=== PATIENT | male | born 1945 | race Caucasian/White ===

== ENCOUNTER 2019-10-04 14:22 | Emergency (ER) | payer MEDICARE ==
[~2019-10-04] VITALS: Ht 180.3 cm; Wt 100.0 kg
[2019-10-04] MEDS ORDERED: morphine 4 MG/ML inj SYRINge IM ONE (15:15)
[2019-10-04] MEDS ORDERED: ceFAZolin 1GM/D5W- ADD-VANTAGE 50 ML IV ONE (15:35)
[2019-10-04] MEDS ORDERED: LIDOcaine 1% 30ml preserv. free vial IJ ONE (15:50)
--- NOTE | 2019-10-04 16:31 | NUR ---
set up for procedure, pt still at bedside, no pain at this time
--- NOTE | 2019-10-04 16:46 | NUR ---
provider at bedside, suturing right palm wound
[2019-10-04] MEDS ORDERED: CEPH-572 PO (17:02)
[2019-10-04 17:32] VITALS: BP 134/84
[2019-10-08] MEDS ORDERED: PRAV40TA3 PO (10:15)
[2019-10-08] MEDS ORDERED: LISI10TA4 PO (10:15)
[2019-10-08] MEDS ORDERED: MAGNESIUM (10:15)
[2019-10-08] MEDS ORDERED: CALCIUM (10:15)
[2019-10-08] MEDS ORDERED: WARF-55 PO (10:15)
[2019-10-08] MEDS ORDERED: OCUVITE (10:15)
[2019-10-08] MEDS ORDERED: MULT-933 PO (10:15)
[2019-10-08] MEDS ORDERED: METO100T14 PO (10:15)
[2019-10-08] MEDS ORDERED: COQ10 (10:15)
[2019-10-08] MEDS ORDERED: FENO145T25 PO (10:15)
[2019-10-08] MEDS ORDERED: DILT120C51 PO (10:15)
== END 2019-10-04 17:34 | disposition home or self-care (01) ==
LOC: ER 14:23
DX: S61.411A Laceration without foreign body of right hand, initial encounter (principal); I48.91 Unspecified atrial fibrillation; I10 Essential (primary) hypertension; F10.99 Alcohol use, unspecified with unspecified alcohol-induced disorder; Z79.899 Other long term (current) drug therapy; W27.8XXA Contact with other nonpowered hand tool, initial encounter; Y93.89 Activity, other specified; Y92.89 Other specified places as the place of occurrence of the external cause; Y99.8 Other external cause status; Y90.9 Presence of alcohol in blood, level not specified
CPT/HCPCS: 12002; 36415; 73130; 85610; 96365; 96372; 99285; J0690; J2001; J2270

== ENCOUNTER 2019-10-11 10:18 | Day surgery (SDC) | payer MEDICARE ==
[2019-10-08 10:16] LABS: BASOPHILS # (AUTO) 0.1 X10'3 (0-0.2); BASOPHILS % (AUTO) 1.6 % (0-1); EOSINOPHILS # (AUTO) 0.6 X10'3 (0-0.9); EOSINOPHILS % (AUTO) 6.7 % (0-6); LYMPHOCYTES # (AUTO) 1.6 X10'3 (1.1-4.8); LYMPHOCYTES % (AUTO) 19.1 % (21-51); MEAN CORPUSCULAR HEMOGLOBIN 33.3 PG (27.0-31.0); MEAN CORPUSCULAR HGB CONC 34.2 g/dL (33.0-36.5); MEAN CORPUSCULAR VOLUME 97.3 FL (78-98); MEAN PLATELET VOLUME 8.7 FL (7.4-10.4); MONOCYTES # (AUTO) 0.8 X10'3 (0-0.9); MONOCYTES % (AUTO) 9.5 % (2-12); NEUTROPHILS # (AUTO) 5.3 X10'3 (1.8-7.7); NEUTROPHILS % (AUTO) 63.1 % (42-75); PRE OP HEMATOCRIT 44.5 % (42.0-52.0); PRE OP HEMOGLOBIN 15.2 g/dL (14.0-17.9); PRE OP PLATELET COUNT 244 X10'3 (140-440); RED BLOOD COUNT 4.58 X10'6 (4.70-6.10)
[2019-10-08 10:29] LABS: ALBUMIN 3.6 G/DL (3.4-5.0); ALBUMIN/GLOBULIN RATIO 0.9 (1.1-1.5); ALKALINE PHOSPHATASE 46 IU/L (46-116); BLOOD UREA NITROGEN 26 MG/DL (7-18); BUN/CREATININE RATIO 16.6 (5.4-32.0); CHLORIDE 104 MMOL/L (99-107); CREATININE 1.57 MG/DL (0.60-1.10); PRE OP ALT 23 U/L (30-65); PRE OP ANION GAP 11 (8-16); PRE OP AST 20 U/L (10-37); PRE OP BILIRUB, TOTAL 0.4 MG/DL (0.0-1.0); PRE OP GLUCOSE 108 MG/DL (70-104); PRE OP POTASSIUM 4.1 MMOL/L (3.4-5.1); PRE OP SODIUM 139 MMOL/L (135-145); TOTAL CARBON DIOXIDE 24.5 MMOL/L (24-32); TOTAL PROTEIN 7.6 G/DL (6.4-8.2); eGFR 44 ML/MIN
[~2019-10-11] VITALS: Ht 154.9 cm; Wt 97.2 kg
[~2019-10-11 10:18] MED LIST: BUPIVAcaine/PF 2.5mg/ml (0.25%) 10ml vial ONE; CALCIUM; COQ10; DILT120C51 PO; FENO145T25 PO; LISI10TA4 PO; MAGNESIUM; METO100T14 PO; MULT-933 PO; OCUVITE; PRAV40TA3 PO; WARF-55 PO
[2019-10-11] MEDS ORDERED: LIDOcaine 0.5% (5mg/ml) 50ml vial ONE (11:03)
[2019-10-11 11:42] VITALS: BP 132/87
[2019-10-11 11:50] VITALS: BP 132/87
[2019-10-11] MEDS ORDERED: ringers solution, lacted 1,000 ML IV SCH ×2 (11:51→12:00)
--- NOTE | 2019-10-11 11:53 | NUR ---
DR HUERTA AND DR MELO SAID NO NEED TO DO PT/INR TODAY
[2019-10-11] MEDS ORDERED: meperidine/PF 25mg/ml syringe IV PRN ×3 (11:55)
[2019-10-11] MEDS ORDERED: ondansetron/PF 4mg/2ml inj IV PRN (11:55)
[2019-10-11] MEDS ORDERED: proCHLORperazine 10 MG/2 ml inj IV PRN (11:55)
[2019-10-11] MEDS ORDERED: morphine 4 MG/ML inj SYRINge IV PRN ×2 (11:55)
[2019-10-11] MEDS ORDERED: DOCUMENT DATE & TIME OF BETA-BLOCKER PO ONE (12:00)
[2019-10-11] MEDS ORDERED: famotidine 20mg tablet PO ONE (12:00)
[2019-10-11] MEDS ORDERED: cefazolin/dext.iso 2gm/50ml 50 ML IV ONE (12:00)
[2019-10-11] MEDS ORDERED: MIDAZolam 5mg/5ml vial ONE (12:56)
[2019-10-11] MEDS ORDERED: fentaNYL/PF 50MCG/1 ML 2ML syringe ONE (12:56)
[2019-10-11] MEDS ORDERED: propofol inj 20 ML IV ONE (13:35)
[2019-10-11 13:54] VITALS: BP 103/62
--- NOTE | 2019-10-11 13:54 | NUR ---
Received from OR via , accompanied by Anesthesiologist DR CASE and report given by Anesthesiolgist. AWAKE AND DENIES PAIN. VITALS STABLE. DRESSING DI. FINGERS WARM AND PINK.
[2019-10-11 14:04] VITALS: BP 118/83
[2019-10-11 14:14] VITALS: BP 128/86
[2019-10-11 14:24] VITALS: BP 123/76
--- NOTE | 2019-10-11 14:34 | NUR ---
AWAKE AND ORIENTED. VITALS STABLE. DRESSING DI. MANDY PAIN. HOME WITH HIS SPOUSE AT THIS TIME.
== END 2019-10-11 14:34 | disposition home or self-care (01) ==
LOC: PAS 10:18
PROVIDERS: ATTEND Orthopaedic Surgery Hand Surgery
DX: S66.126A Laceration of flexor muscle, fascia and tendon of right little finger at wrist and hand level, initial encounter (principal); S62.396A Other fracture of fifth metacarpal bone, right hand, initial encounter for closed fracture; S64.01XA Injury of ulnar nerve at wrist and hand level of right arm, initial encounter; I10 Essential (primary) hypertension; I48.91 Unspecified atrial fibrillation; K21.9 Gastro-esophageal reflux disease without esophagitis; Z72.89 Other problems related to lifestyle; Z98.890 Other specified postprocedural states; Z79.01 Long term (current) use of anticoagulants; Z96.643 Presence of artificial hip joint, bilateral; Z79.899 Other long term (current) drug therapy; Z88.8 Allergy status to other drugs, medicaments and biological substances; W31.2XXA Contact with powered woodworking and forming machines, initial encounter; Y93.89 Activity, other specified; Y92.89 Other specified places as the place of occurrence of the external cause; Y99.8 Other external cause status
CPT/HCPCS: 26350; 26615; 36415; 64836; 80053; 82948; 85025; C1713; J2001; J2250; J2704; J3010; J3490; J7120; A4215; A4618; A7000

== ENCOUNTER 2020-09-15 07:29 | Day surgery (SDC) | payer MEDICARE ==
[2020-09-07 15:09] LABS: BASOPHILS # (AUTO) 0.1 X10'3 (0-0.2); BASOPHILS % (AUTO) 1.3 % (0-1); EOSINOPHILS # (AUTO) 0.3 X10'3 (0-0.9); EOSINOPHILS % (AUTO) 3.7 % (0-6); LYMPHOCYTES # (AUTO) 1.4 X10'3 (1.1-4.8); LYMPHOCYTES % (AUTO) 14.9 % (21-51); MEAN CORPUSCULAR HEMOGLOBIN 32.6 PG (27.0-31.0); MEAN CORPUSCULAR HGB CONC 33.2 g/dL (33.0-36.5); MEAN CORPUSCULAR VOLUME 98.1 FL (78-98); MEAN PLATELET VOLUME 9.1 FL (7.4-10.4); MONOCYTES # (AUTO) 1.1 X10'3 (0-0.9); MONOCYTES % (AUTO) 11.9 % (2-12); NEUTROPHILS # (AUTO) 6.4 X10'3 (1.8-7.7); NEUTROPHILS % (AUTO) 68.2 % (42-75); PRE OP HEMOGLOBIN 14.9 g/dL (14.0-17.9); PRE OP PLATELET COUNT 245 X10'3 (140-440); RED BLOOD COUNT 4.59 X10'6 (4.70-6.10); RED CELL DISTRIBUTION WIDTH 13.8 % (11.5-14.5)
[2020-09-07 15:28] LABS: PRE OP PROTIME 31.7 SECONDS (9.0-12.0)
[2020-09-07 15:30] LABS: ALBUMIN 3.6 G/DL (3.4-5.0); ALKALINE PHOSPHATASE 43 IU/L (46-116); BLOOD UREA NITROGEN 37 MG/DL (7-18); BUN/CREATININE RATIO 20.6 (5.4-32.0); CHLORIDE 105 MMOL/L (99-107); PRE OP ALT 33 U/L (30-65); PRE OP ANION GAP 8 (8-16); PRE OP AST 23 U/L (10-37); PRE OP BILIRUB, TOTAL 0.3 MG/DL (0.0-1.0); PRE OP GLUCOSE 111 MG/DL (70-104); PRE OP POTASSIUM 4.5 MMOL/L (3.4-5.1); PRE OP SODIUM 142 MMOL/L (135-145); TOTAL CARBON DIOXIDE 29.3 MMOL/L (24-32); TOTAL PROTEIN 7.3 G/DL (6.4-8.2); eGFR 37 ML/MIN
[2020-09-07 15:34] LABS: PRE OP INR 3.3 INR
[~2020-09-15] VITALS: Ht 180.3 cm; Wt 100.2 kg
[~2020-09-15 07:29] MED LIST changes: +DOCUMENT DATE & TIME OF BETA-BLOCKER PO ONE; +ceFAZolin 2gm in dextrose, iso 50 ML IV ONE; +famotidine 10mg tablet PO ONE; +ringers solution, lacted 1,000 ML IV SCH
[2020-09-15] MEDS ORDERED: meperidine/PF 25mg/ml syringe IV PRN ×3 (07:30)
[2020-09-15] MEDS ORDERED: proCHLORperazine 10 MG/2 ml inj IV PRN (07:30)
[2020-09-15] MEDS ORDERED: morphine 2 MG/ML inj. syringe IV PRN (07:30)
[2020-09-15] MEDS ORDERED: morphine 4 MG/ML inj SYRINge IV PRN (07:30)
[2020-09-15] MEDS ORDERED: ondansetron/PF 4mg/2ml inj IV PRN (07:30)
[2020-09-15] MEDS ORDERED: ringers solution, lacted 1,000 ML IV SCH (07:30)
[2020-09-15] MEDS ORDERED: LIDOcaine 1% 30ml preserv. free vial ONE (07:35)
[2020-09-15 07:40] VITALS: BP 132/75
[2020-09-15] MEDS ORDERED: BUPIVAcaine/PF 2.5mg/ml (0.25%) 10ml vial ONE (10:25)
[2020-09-15] MEDS ORDERED: fentaNYL/PF 50MCG/1 ML 2ML syringe ONE (10:35)
[2020-09-15] MEDS ORDERED: midazolam 2 mg/2 ml injection ONE ×2 (10:35→10:46)
[2020-09-15 11:15] VITALS: BP 115/79
--- NOTE | 2020-09-15 11:15 | NUR ---
Received from OR via BED, accompanied by Anesthesiologist DR ZAMORA and report given by Anesthesiolgist. PATIENT A&OX4, DENIES PAIN, V/S WNL, NEUROVASCULAR CHECKS INTACT, 20G PIV LUE, SCD ON, DRESSING TO RIGHT WRIST PINKY CDI ELEVATED WITH ICEBAG APPLIED.
[2020-09-15 11:25] VITALS: BP 118/71
[2020-09-15 11:35] VITALS: BP 111/78
[2020-09-15 11:45] VITALS: BP 115/77
--- NOTE | 2020-09-15 11:45 | NUR ---
PATIENT A&OX4, DENIES PAIN, V/S WNL, NEUROVASCULAR CHECKS INTACT, 20G PIV LUE D/C, SCD OFF, DRESSING TO RIGHT WRIST CDI ELEVATED WITH ICEBAG APPLIED. I HAVE REVIEWED D/C INSTRUCTIONS WITH PATIENT AND FAMILY AND THEY HAVE VERBALIZED UNDERSTANDING. PATIENT D/C HOME WITH ALL BELONGINGS AND FAMILY GAVE TRANSPORT HOME.
[2020-09-15] MEDS ORDERED: LIDOcaine 0.5% (5mg/ml) 50ml vial ONE (12:08)
== END 2020-09-15 11:45 | disposition home or self-care (01) ==
LOC: PAS 07:29
PROVIDERS: ATTEND Orthopaedic Surgery Hand Surgery
DX: M24.541 Contracture, right hand (principal); M19.072 Primary osteoarthritis, left ankle and foot; I48.91 Unspecified atrial fibrillation; E78.5 Hyperlipidemia, unspecified; Z72.89 Other problems related to lifestyle; Z98.890 Other specified postprocedural states; Z79.899 Other long term (current) drug therapy; Z79.01 Long term (current) use of anticoagulants; Z20.828 Contact with and (suspected) exposure to other viral communicable diseases
CPT/HCPCS: 26525; 36415; 80053; 82948; 85025; 85610; 85730; 87635; 93005; J2001; J2250; J3010; J3490; J7120; A4215; A6449

== ENCOUNTER 2023-01-28 01:59 | Emergency (ER) | payer MEDICARE ==
[~2023-01-28] VITALS: Ht 180.3 cm; Wt 100.0 kg
[~2023-01-28 01:59] MED LIST changes: -BUPIVAcaine/PF 2.5mg/ml (0.25%) 10ml vial ONE; -DOCUMENT DATE & TIME OF BETA-BLOCKER PO ONE; +LISI10TA27 PO; -LISI10TA4 PO; -ceFAZolin 2gm in dextrose, iso 50 ML IV ONE; -famotidine 10mg tablet PO ONE; -ringers solution, lacted 1,000 ML IV SCH
[2023-01-28 02:03] VITALS: BP 171/91
[2023-01-28 02:26] LABS: BASOPHILS # (AUTO) 0.1 X10'3 (0-0.2); BASOPHILS % (AUTO) 1.1 % (0-1); EOSINOPHILS # (AUTO) 0.5 X10'3 (0-0.9); EOSINOPHILS % (AUTO) 4.5 % (0-6); HEMATOCRIT 40.5 % (42.0-52.0); LYMPHOCYTES # (AUTO) 1.3 X10'3 (1.1-4.8); MEAN CORPUSCULAR HEMOGLOBIN 33.4 PG (27.0-31.0); MEAN CORPUSCULAR HGB CONC 34.6 g/dL (33.0-36.5); MEAN CORPUSCULAR VOLUME 96.5 FL (78-98); MEAN PLATELET VOLUME 8.5 FL (7.4-10.4); MONOCYTES # (AUTO) 0.9 X10'3 (0-0.9); MONOCYTES % (AUTO) 9.1 % (2-12); NEUTROPHILS # (AUTO) 7.6 X10'3 (1.8-7.7); NEUTROPHILS % (AUTO) 73.3 % (42-75); PLATELET COUNT 211 X10'3 (140-440); RED BLOOD COUNT 4.19 X10'6 (4.70-6.10); WHITE BLOOD COUNT 10.4 X10'3 (4.5-11.0)
[2023-01-28 02:37] LABS: ALANINE AMINOTRANSFERASE 29 U/L (12-78); ALBUMIN 3.7 G/DL (3.4-5.0); ALBUMIN/GLOBULIN RATIO 1.1 (1.1-1.5); ALKALINE PHOSPHATASE 40 IU/L (46-116); ANION GAP 10 (8-16); ASPARTATE AMINO TRANSFERASE 25 U/L (10-37); BILIRUBIN,TOTAL 0.6 MG/DL (0.1-1.0); BLOOD UREA NITROGEN 39 MG/DL (7-18); CALCIUM 9.4 MG/DL (8.5-10.1); CHLORIDE 106 MMOL/L (99-107); CREATININE 2.29 MG/DL (0.60-1.10); GLUCOSE 130 MG/DL (70-104); LIPASE 190 U/L (73-393); POTASSIUM 4.1 MMOL/L (3.5-5.1); SODIUM 139 MMOL/L (135-145); TOTAL CARBON DIOXIDE 22.6 MMOL/L (24-32); TOTAL PROTEIN 7.2 G/DL (6.4-8.2); eGFR 28 ML/MIN
[2023-01-28] MEDS ORDERED: ONDA4TAB12 PO (13:29)
[2023-01-28] MEDS ORDERED: FLO0.4C PO (13:29)
[2023-01-28] MEDS ORDERED: DOCU-151 PO (13:29)
[2023-01-28] MEDS ORDERED: HYDR-3965 PO (13:29)
== END 2023-01-28 03:58 | disposition left against medical advice (07) ==
LOC: ER 02:00
DX: R10.9 Unspecified abdominal pain (principal); Z53.21 Procedure and treatment not carried out due to patient leaving prior to being seen by health care provider
CPT/HCPCS: 36415; 80053; 83690; 85025; 99281

== ENCOUNTER 2023-01-28 09:05 | Emergency (ER) | payer MEDICARE ==
[~2023-01-28] VITALS: Ht 177.8 cm; Wt 100.0 kg
[2023-01-28 10:23] LABS: CLARITY,URINE SLIGHTLY CLOUDY (Clear); COLOR,URINE YELLOW (Yellow); GLUCOSE, URINE NEGATIVE (Neg); KETONES,URINE NEGATIVE (Neg); LEUKOCYTE ESTERASE ,URINE NEGATIVE (Neg); NITRITES, URINE NEGATIVE (Neg); OCCULT BLOOD,URINE SMALL (Neg); PROTEIN,URINE NEGATIVE (Neg); UROBILINOGEN,URINE 0.2 E.U/dL (0.2-1.0)
[2023-01-28 10:25] LABS: UA COLLECTION TYPE CLN CATCH MIDSTREAM
[2023-01-28 10:38] LABS: BACTERIA,URINE FEW /HPF (Neg); SQUAMOUS EPITHELIAL CELL,UR NONE SEEN /LPF (FEW)
[2023-01-28 10:39] LABS: MUCUS STRANDS FEW /LPF (Neg)
[2023-01-28 11:00] LABS: BASOPHILS # (AUTO) 0.1 X10'3 (0-0.2); BASOPHILS % (AUTO) 0.8 % (0-1); EOSINOPHILS # (AUTO) 0.1 X10'3 (0-0.9); EOSINOPHILS % (AUTO) 0.4 % (0-6); HEMATOCRIT 42.1 % (42.0-52.0); HEMOGLOBIN 13.9 g/dl (14.0-17.9); LYMPHOCYTES # (AUTO) 0.8 X10'3 (1.1-4.8); LYMPHOCYTES % (AUTO) 6.3 % (21-51); MEAN CORPUSCULAR HEMOGLOBIN 32.5 PG (27.0-31.0); MEAN CORPUSCULAR VOLUME 98.4 FL (78-98); MEAN PLATELET VOLUME 9.2 FL (7.4-10.4); MONOCYTES # (AUTO) 1.1 X10'3 (0-0.9); MONOCYTES % (AUTO) 8.4 % (2-12); NEUTROPHILS # (AUTO) 10.8 X10'3 (1.8-7.7); NEUTROPHILS % (AUTO) 84.1 % (42-75); PLATELET COUNT 199 X10'3 (140-440); RED BLOOD COUNT 4.28 X10'6 (4.70-6.10); RED CELL DISTRIBUTION WIDTH 14.1 % (11.5-14.5); WHITE BLOOD COUNT 12.9 X10'3 (4.5-11.0)
[2023-01-28 11:11] LABS: ALANINE AMINOTRANSFERASE 27 U/L (12-78); ALBUMIN/GLOBULIN RATIO 1.1 (1.1-1.5); ALKALINE PHOSPHATASE 36 IU/L (46-116); ANION GAP 9 (8-16); ASPARTATE AMINO TRANSFERASE 30 U/L (10-37); BILIRUBIN,TOTAL 0.7 MG/DL (0.1-1.0); BLOOD UREA NITROGEN 36 MG/DL (7-18); BUN/CREATININE RATIO 16.7 (5.4-32.0); CALCIUM 9.6 MG/DL (8.5-10.1); CHLORIDE 104 MMOL/L (99-107); CREATININE 2.15 MG/DL (0.60-1.10); GLUCOSE 126 MG/DL (70-104); LIPASE 105 U/L (73-393); SODIUM 138 MMOL/L (135-145); TOTAL CARBON DIOXIDE 24.7 MMOL/L (24-32); TOTAL PROTEIN 7.8 G/DL (6.4-8.2); eGFR 30 ML/MIN
[2023-01-28] MEDS ORDERED: normal saline 1000ML IV soln IVB ONE (11:50)
[2023-01-28] MEDS ORDERED: morphine 4 MG/ML inj SYRINge IV PRN (11:50)
[2023-01-28] MEDS ORDERED: ondansetron/PF 4mg/2ml inj IV ONE (11:50)
[2023-01-28] MEDS ORDERED: FLO0.4C PO (13:29)
[2023-01-28] MEDS ORDERED: HYDR-3965 PO (13:29)
[2023-01-28] MEDS ORDERED: ONDA4TAB12 PO (13:29)
[2023-01-28] MEDS ORDERED: DOCU-151 PO (13:29)
[2023-01-28 14:13] VITALS: BP 136/91
== END 2023-01-28 16:45 | disposition home or self-care (01) ==
LOC: ER 09:05
DX: N20.0 Calculus of kidney (principal); N17.9 Acute kidney failure, unspecified; I10 Essential (primary) hypertension
CPT/HCPCS: 36415; 74176; 80053; 81001; 83690; 85025; 87088; 96374; 96375; 99285; J2270; J2405; J7030